=== PATIENT | male | born 1965 | race Caucasian/White ===

== ENCOUNTER 2017-11-14 15:41 | Emergency (ER) | payer BC ==
[2017-11-14 16:22] LABS: ABS Basophils 0.1 10^3/ul (0-0.2); ABS Eosinophils 0.1 10^3/ul (0-0.6); ABS Lymphocytes 1.4 10^3/ul (1.0-4.8); ABS Monocytes 1.3 10^3/ul (0-0.8); ABS Nucleated RBC 0 10^3/ul; Eosinophil % 0.8 % (0-6); Hematocrit 44 % (42-52); Lymphocyte % 9.2 % (25-47); Mean Corpuscular HGB Conc 34 g/dl (31-36); Mean Corpuscular Hemoglobin 31 pg (27-31); Mean Corpuscular Volume 89 fL (80-94); Mean Platelet Volume 6.9 um3 (7.4-10.4); Nucleated Red Blood Cells % 0.1; Platelet Count 245 10^3/ul (150-450); Red Cell Distribution Width 14 % (10.5-15); White Blood Count 14.8 10^3/ul (3.5-10.8)
--- NOTE | 2017-11-14 16:23 | ED ---
HPI Chest Pain - HPI Summary HPI Summary: This patient is a 52 year old M BIBA to [facility] with a chief complaint intermittent CP that was more intense since last night. Pt states he has had mild intermittent CP since he had two stents placed in 2013 but it was more intense last night and this morning. The patient rates the pain 0/10 in severity currently but when he is in pain it is 3/10. He describes the pain as a dull ache in the middle of his chest and states it lasts for about a minute at a time. Patient reports MARCH, cough, and fatigue. Patient denies n/v, SOB, syncope, diaphoresis, and ABD pain. Pt states he tok his BP at home and it was 180/100 but it is usually 125/80 and is on 3 BP meds. Just saw wellness educator 2 weeks ago and believe his last stress test was in june of this year. - History of Current Complaint Chief Complaint: EDChestPainROMI Time Seen by Provider: 11/14/17 15:48 Hx Obtained From: Patient Onset/Duration: Resolved Timing: Intermittent, Lasting Minutes - 1 Initial Severity: Mild Current Severity: None Pain Intensity: 3 Pain Scale Used: 0-10 Numeric Chest Pain Location: Mid Sternal Chest Pain Radiates: No Character: Other: - ache Associated Signs and Symptoms: Positive: Other: - chills and cough - Allergy/Home Medications Allergies/Adverse Reactions: Allergies Allergy/AdvReac Type Severity Reaction Status Date / Time No Known Allergies Allergy Verified 11/14/17 19:19 Home Medications: Home Medications Amlodipine Besylate [Norvasc 2.5 mg tab] 2.5 mg PO DAILY 11/14/17 [History Confirmed 11/14/17] Aspirin EC TAB* [Ecotrin EC Low Dose 81 MG*] 81 mg PO DAILY 11/14/17 [History Confirmed 11/14/17] Atorvastatin* [Lipitor*] 80 mg PO QPM 11/14/17 [History Confirmed 11/14/17] Carvedilol TAB* [Coreg TAB*] 3.125 mg PO BID 11/14/17 [History Confirmed ] Ezetimibe TAB* [Zetia TAB*] 10 mg PO DAILY 11/14/17 [History Confirmed 11/14/17] Losartan Potassium [Cozaar] 50 mg PO DAILY 11/14/17 [History Confirmed 11/14/17] Methylphenidate HCl [Metadate ER] 20 mg PO DAILY 11/14/17 [History Confirmed ] Pantoprazole TAB (NF) [Protonix TAB (NF)] 40 mg PO DAILY 11/14/17 [History Confirmed 11/14/17] Tadalafil [Cialis] 5 mg PO DAILY 11/14/17 [History Confirmed 11/14/17] Tamsulosin HCl 0.4 mg PO DAILY 11/14/17 [History Confirmed 11/14/17] ValACYclovir (*) [Valtrex 1 GM(*)] 1 gm PO DAILY 11/14/17 [History Confirmed ] PMH/Surg Hx/FS Hx/Imm Hx Cardiovascular History: Reports: Hx Coronary Artery Disease Neurological History: Denies: Hx Dementia, Hx Headaches - Immunization History Immunizations Up to Date: Yes Infectious Disease History: No Infectious Disease History: Denies: Traveled Outside the [place] in Last 30 Days - Family History Known Family History: Positive: Cardiac Disease, Hypertension - Social History Alcohol Use: Occasionally Substance Use Type: Reports: None Smoking Status (MU): Never Smoked Tobacco Review of Systems Positive: Chills, Fatigue Positive: Chest Pain Positive: Cough. Negative: Shortness Of Breath Negative: Abdominal Pain, Vomiting, Nausea Positive: Headache. Negative: Syncope All Other Systems Reviewed And Are Negative: Yes Physical Exam - Summary Physical Exam Summary: VITAL SIGNS: Reviewed. GENERAL: Patient is a well-developed and nourished male who is lying comfortable in the stretcher. Patient is not in any acute respiratory distress. HEAD AND FACE: No signs of trauma. No ecchymosis, hematomas or skull depressions. No sinus tenderness. EYES: PERRLA, EOMI x 2, No injected conjunctiva, no nystagmus. EARS: Hearing grossly intact. Ear canals and tympanic membranes are within normal limits. MOUTH: Oropharynx within normal limits. NECK: Supple, trachea is midline, no adenopathy, no JVD, no carotid bruit, no c- spine tenderness, neck with full ROM. CHEST: Symmetric, no tenderness at palpation LUNGS: Clear to auscultation bilaterally. No wheezing or crackles. CVS: Regular rate and rhythm, S1 and S2 present, no murmurs or gallops appreciated. ABDOMEN: Soft, non-tender. No signs of distention. No rebound no guarding, and no masses palpated. Bowel sounds are normal. EXTREMITIES: FROM in all major joints, no edema, no cyanosis or clubbing. NEURO: Alert and oriented x 3. No acute neurological deficits. Speech is normal and follows commands. SKIN: Dry and warm Triage Information Reviewed: Yes Vital Signs On Initial Exam: Initial Vitals Temp Pulse Resp BP Pulse Ox 99.9 F 96 18 142/97 97 11/14/17 16:04 11/14/17 16:04 11/14/17 16:04 11/14/17 16:04 11/14/17 16:04 Vital Signs Reviewed: Yes Diagnostics - Vital Signs Vital Signs Temp Pulse Resp BP Pulse Ox 11/14/17 16:04 99.9 F 96 18 142/97 97 - Laboratory Result Diagrams: 11/14/17 16:14 11/14/17 16:14 Lab Statement: Any lab studies that have been ordered have been reviewed, and results considered in the medical decision making process. - Radiology CXR Radiology Interpretation Completed By: Radiologist - NO ACTIVE CARDIOPULMONARY DISEASE IS NOTED. ED physician has reviewed this radiology report. - EKG 15:57 Cardiac Rate: NL EKG Rhythm: Sinus Rhythm EKG Interpretation: no ST elevations Chest Pain Course/Dx - Course Assessment/Plan: This patient is a 52-year-old male who presents to the emergency department with chief complaint of having chest pain. The patient reports that yesterday she had this chest pressure and left-sided chest which lasted for a few minutes and resolved. Today he developed a couple of episodes of the same pain therefore he decided to come to the emergency room for further workup and management. Patient also reports that he had some neck pain but has subsided. At this point the patient is asymptomatic. Patient had a stress test on June 2017 and has been normal. Patient has history of RCA occlusion is status post stents. The patient is only taking aspirin. Patient reports that he is just a free in the ER. Patient is asymptomatic. Blood test results without any significant abnormality. Troponin 0.00. EKG shows a normal sinus rhythm with and no ST elevations. At this time patient is stable and he is asymptomatic. Patient is signed out to Dr. Bui at shift change to check second troponin, re-asset patient and disposition of patient. - Chest Pain Differential Diagnosis/HQI/PQRI: Acute MS, ACS, Angina, CHF, Chest Wall, GI Disease, Lower Respiratory Infection - Diagnoses Provider Diagnoses: Chest pain Discharge - Sign-Out/Discharge Documenting (check all that apply): Sign-Out Patient Signing out patient TO: Chaim Mcfadden - [facility] - Discharge Plan Condition: Good Disposition: HOME Patient Education Materials: Chest Pain (ED) Referrals: Dasha Kirkpatrick [Primary Care Provider] - 3 Days Additional Instructions: Your blood work did not show any signs of blocked blood vessel in the heart. Make sure to followup with your cardioologist on Friday, but if you start feeling sicker over the weekend you should return here. - Billing Disposition and Condition Condition: GOOD Disposition: Home - Attestation Statements Document Initiated by D[place]: Yes Documenting Scribe: Prince Viera Provider For Whom Darien is Documenting (Include Credential): Ramón Whitehead MD Scribe Attestation: Prince Hennessy , scribed for Ramón Whitehead MD on 11/15/17 at 2147. Scribe Documentation Reviewed: Yes Provider Attestation: The documentation as recorded by the Prince álvarez accurately reflects the service I personally performed and the decisions made by me, Ramón Whitehead MD
[2017-11-14 16:35] LABS: INR 1.01 (0.77-1.02)
--- NOTE | 2017-11-14 16:39 | RAD ---
Indication: Chest pain. Single frontal view of the chest performed at 1625 hours was reviewed. No prior study is available. No mediastinal shift is noted. Heart is of normal size and configuration. Lung murphy appear clear. IMPRESSION: NO ACTIVE CARDIOPULMONARY DISEASE IS NOTED.
[2017-11-14 17:00] LABS: Urine Appearance Clear; Urine Blood Negative (Negative); Urine Color Yellow; Urine Ketones Negative (Negative); Urine Protein Negative (Negative); Urine Red Blood Cell Trace(0-2/hpf) (Absent); Urine Specific Gravity 1.004 (1.010-1.030); Urine Urobilinogen Negative (Negative); Urine White Blood Cell Trace(0-5/hpf) (Absent)
[2017-11-14 17:16] LABS: EGFR Non-African American 82.9 (>60)
--- NOTE | 2017-11-14 19:33 | ED ---
Progress - Progress Note Progress Note: Dr. Mcfadden received pt sign out from Dr. Ramón Whitehead awaiting second troponin levels. Blood work did not show any signs of blocked blood vessel in the heart. Pt was discharged home and told to follow up with his preventive maintenance engineer. Pt is agreeable with this plan. Course/Dx - Course Course Of Treatment: Dr. Mcfadden received pt sign out from Dr. Ramón Whitehead awaiting second troponin levels. Pt is a 52 y/o M who presents to ED c/o CP. Blood work did not show any signs of blocked blood vessel in the heart. Pt was discharged home and told to follow up with his preventive maintenance engineer. Pt is agreeable with this plan. - Diagnoses Provider Diagnoses: Chest pain Discharge - Sign-Out/Discharge Documenting (check all that apply): Patient Departure - Discharge, Receiving Sign-Out Receiving patient FROM: Ramón Whitehead - Discharge Plan Condition: Good Disposition: HOME Patient Education Materials: Chest Pain (ED) Referrals: Dasha Kirkpatrick [Primary Care Provider] - 3 Days Additional Instructions: Your blood work did not show any signs of blocked blood vessel in the heart. Make sure to followup with your cardioologist on Friday, but if you start feeling sicker over the weekend you should return here. - Attestation Statements Document Initiated by Scribe: Yes Documenting Scribe: Ngozi Cowan Provider For Whom Scribe is Documenting (Include Credential): Dr. Chaim Mcfadden MD Scribe Attestation: Ngozi Hennessy, scribed for Dr. Chaim Mcfadden MD on 11/14/17 at 2153.
[2017-11-14 20:11] VITALS: BP 143/91
== END 2017-11-14 21:03 | disposition home or self-care (01) ==
LOC: ED 15:41
DX: R07.89 Other chest pain (principal); I25.10 Atherosclerotic heart disease of native coronary artery without angina pectoris; Z95.5 Presence of coronary angioplasty implant and graft; Z79.82 Long term (current) use of aspirin
CPT/HCPCS: 36415; 71045; 80053; 81003; 81015; 82550; 82553; 83605; 83735; 83880; 84443; 84484; 85025; 85379; 85610; 85730; 87086; 93005; 99285

== ENCOUNTER 2018-09-13 08:38 | Emergency (ER) | payer BC ==
--- NOTE | 2018-09-13 09:09 | ED ---
Respiratory - HPI Summary HPI Summary: A 53 y/o male presents to [facility] with a chief complaint of coughing intermittently for the last 8 weeks, worsening for the last two weeks. He says that this morning he coughed up some blood. He says that he gets some SOB and dizziness when coughing. He denies any CP, claiming that he might get some chest tightness when he coughs on an exhale. At triage he rated his pain as a 3/ 10 in severity. He says that he went to on 09/08/18 and then was taking an albuterol inhaler, Flonase and Zyrtec. She also takes Losartan, Amlodipine, Pantoprazole and 5mg Cialis. He denies a Hx of COPD or asthma, but reports a Hx of HTN, GERD and BPH. He denies smoking or any long travel. - History of Current Complaint Chief Complaint: EDUpperRespComplaint Stated Complaint: COUGH PER PATIENT Time Seen by Provider: 09/13/18 08:59 Hx Obtained From: Patient Onset/Duration: Sudden Onset, Lasting Weeks, Still Present Timing: Intermittent Episodes Lasting: - minutes Initial Severity: Mild Current Severity: Mild Pain Intensity: 3 - out of 10 Character: Cough (Productive) Sputum Color: Red (Blood) - this morning Aggravating Factor(s): Nothing Alleviating Factor(s): Nothing Associated Signs and Symptoms: SOB, Dizziness - Allergy/Home Medications Allergies/Adverse Reactions: Allergies Allergy/AdvReac Type Severity Reaction Status Date / Time No Known Allergies Allergy Verified 09/13/18 08:44 PMH/Surg Hx/FS Hx/Imm Hx Cardiovascular History: Reports: Hx Coronary Artery Disease, Hx Hypertension Respiratory History: Denies: Hx Asthma, Hx Chronic Obstructive Pulmonary Disease (COPD) GI History: Reports: Hx Gastroesophageal Reflux Disease History: Reports: Hx Benign Prostatic Hyperplasia Neurological History: Denies: Hx Dementia, Hx Headaches Infectious Disease History: No Infectious Disease History: Denies: Traveled Outside the [place] in Last 30 Days - Family History Known Family History: Positive: Cardiac Disease, Hypertension - Social History Alcohol Use: Occasionally Substance Use Type: Reports: None Smoking Status (MU): Never Smoked Tobacco Review of Systems Negative: Fever, Chills Negative: Chest Pain Positive: Shortness Of Breath, Cough - intermittently for past 8 weeks, worsened last two weeks, coughed up blood this morning Neurological: Other - positive: dizziness All Other Systems Reviewed And Are Negative: Yes Physical Exam - Summary Physical Exam Summary: VITAL SIGNS: Reviewed. GENERAL: Patient is a well-developed and nourished MALE who is lying comfortable in the stretcher. Patient is not in any acute respiratory distress. HEAD AND FACE: No signs of trauma. No ecchymosis, hematomas or skull depressions. No sinus tenderness. EYES: PERRLA, EOMI x 2, No injected conjunctiva, no nystagmus. EARS: Hearing grossly intact. Ear canals and tympanic membranes are within normal limits. MOUTH: Oropharynx within normal limits. NECK: Supple, trachea is midline, no adenopathy, no JVD, no carotid bruit, no c- spine tenderness, neck with full ROM. CHEST: Symmetric, no tenderness at palpation. LUNGS: Clear to auscultation bilaterally. No wheezing or crackles. CVS: Regular rate and rhythm, S1 and S2 present, no murmurs or gallops appreciated. ABDOMEN: Soft, non-tender. No signs of distention. No rebound, no guarding, and no masses palpated. Bowel sounds are normal. EXTREMITIES: FROM in all major joints, no edema, no cyanosis or clubbing. NEURO: Alert and oriented x 3. No acute neurological deficits. Speech is normal and follows commands. SKIN: Dry and warm. Triage Information Reviewed: Yes Vital Signs On Initial Exam: Initial Vitals Temp Pulse Resp BP Pulse Ox 98.1 F 86 18 154/96 95 09/13/18 08:41 09/13/18 08:41 09/13/18 08:41 09/13/18 08:41 09/13/18 08:41 Vital Signs Reviewed: Yes Diagnostics - Vital Signs Vital Signs Temp Pulse Resp BP Pulse Ox 09/13/18 08:41 98.1 F 86 18 154/96 95 - Laboratory Result Diagrams: 09/13/18 09:11 09/13/18 09:11 Lab Statement: Any lab studies that have been ordered have been reviewed, and results considered in the medical decision making process. - Radiology CXR Radiology Interpretation Completed By: Radiologist Summary of Radiographic Findings: NO ACTIVE CARDIOPULMONARY DISEASE. ED physician has reviewed this imaging report. - EKG 09:11 Cardiac Rate: NL - 76 bpm EKG Rhythm: Sinus Rhythm ST Segment: Normal EKG Comparison: No Significant Change Summary of EKG Findings: NSR at [address] elevations, Q-wave in II similar to previous EKG done 11/14/17 Disposition - Course Assessment/Plan: A 53 y/o male presents to [facility] with a chief complaint of coughing intermittently for the last 8 weeks, worsening for the last two weeks. He says that this morning he coughed up some blood. He says that he gets some SOB and dizziness when coughing. He denies any CP, claiming that he might get some chest tightness when he coughs on an exhale. At triage he rated his pain as a 3/10 in severity. He says that he went to on 09/08/18 and then was taking an albuterol inhaler, Flonase and Zyrtec. She also takes Losartan, Amlodipine, Pantoprazole and 5mg Cialis. He denies a Hx of COPD or asthma, but reports a Hx of HTN, GERD and BPH. He denies smoking or any long travel. Blood work without any significant abnormality except for glucose of 112, AST is 57, total CPK is 403. Chest x-ray impression: No active cardiopulmonary disease. Since the blood test results abdomen normal limits at believe that the patient may have a viral cough. The patient is not febrile, not productive cough therefore I would give the patient a prescription for Robitussin-AC and follow with the primary care physician. Patient is hemodynamically stable alert and oriented 3. - Diagnoses Provider Diagnoses: Cough Discharge - Sign-Out/Discharge Documenting (check all that apply): Patient Departure - DC Patient Received Moderate/Deep Sedation with Procedure: No - Discharge Plan Condition: Stable Disposition: HOME Prescriptions: guaiFENesin/CODIEN 100MG-10MG* [Robitussin AC 100Mg-10Mg*] 10 ml PO Q6H PRN # 200 ml MDD ml PRN Reason: Cough Patient Education Materials: Acute Cough (ED) Referrals: Dasha Kirkpatrick [Primary Care Provider] - (2-3 days) Additional Instructions: FOLLOW UP WITH YOUR PRIMARY CARE PROVIDER WITHIN 2-3 days. RETURN TO THE ED FOR ANY WORSENING OR NEW SYMPTOMS. - Billing Disposition and Condition Condition: STABLE Disposition: Home - Attestation Statements Document Initiated by Scribe: Yes Documenting Scribe: Reji Neville Provider For Whom Scribe is Documenting (Include Credential): Ramón Whitehead MD Scribe Attestation: I, Reji Neville, scribed for Ramón Whitehead MD on 09/14/18 at 2019. Scribe Documentation Reviewed: Yes Provider Attestation: The documentation as recorded by the scribe, Reji Neville accurately reflects the service I personally performed and the decisions made by me, Ramón Whitehead MD Status of Scribe Document: Viewed
[2018-09-13 09:36] LABS: ABS Basophils 0.1 10^3/ul (0-0.2); ABS Eosinophils 0.4 10^3/ul (0-0.6); ABS Lymphocytes 1.7 10^3/ul (1.0-4.8); ABS Monocytes 0.6 10^3/ul (0-0.8); ABS Neutrophils 3.6 10^3/ul (1.5-7.7); Eosinophil % 5.7 %; Hematocrit 45 % (42-52); Hemoglobin 15.5 g/dL (14.0-18.0); Lymphocyte % 26.9 %; Mean Corpuscular HGB Conc 34 g/dL (31-36); Mean Corpuscular Hemoglobin 31 pg (27-31); Mean Corpuscular Volume 90 fL (80-94); Mean Platelet Volume 6.9 fL (7.4-10.4); Platelet Count 255 10^3/uL (150-450); Red Cell Distribution Width 13 % (10-15); White Blood Count 6.3 10^3/uL (3.5-10.8)
[2018-09-13 09:53] LABS: Albumin 4.3 g/dL (3.2-5.2); Albumin/Globulin Ratio 1.4 (1-3); BUN/Creatinine Ratio 19.3 (8-20); C Reactive Protein 2.8 mg/L (<8.01); Calcium 10.2 mg/dL (8.6-10.3); EGFR African American 110.5 (>60); EGFR Non-African American 91.3 (>60); Potassium 3.7 mmol/L (3.5-5.0); Total Bilirubin 0.7 mg/dL (0.2-1.0); Total Protein 7.3 g/dL (6.4-8.9)
[2018-09-13 09:56] LABS: CKMB ng/mL 4.1 ng/mL (0.6-6.3)
[2018-09-13 11:12] VITALS: BP 135/89
== END 2018-09-13 11:12 | disposition home or self-care (01) ==
LOC: ED 08:38
DX: R05 Cough (principal); R06.02 Shortness of breath; R42 Dizziness and giddiness; I25.10 Atherosclerotic heart disease of native coronary artery without angina pectoris; I10 Essential (primary) hypertension
CPT/HCPCS: 36415; 71046; 80053; 82550; 82553; 83605; 83880; 84484; 85025; 85730; 86140; 93005; 99282